=== PATIENT | male | born 1970 | race American Indian/Alaskan Native ===

== ENCOUNTER 2021-08-27 07:50 | Emergency (ER) | payer OTHER ==
--- NOTE | 2021-08-27 12:20 | Emergency Department Report ---
ED General Adult HPI - General Chief complaint: Chest Pain Stated complaint: CHEST PAIN Time Seen by Provider: 08/27/21 11:49 Source: patient, EMS Mode of arrival: Stretcher Limitations: No Limitations - History of Present Illness Initial comments: Patient is 51 years old male with no significant past medical history. Patient brought to the emergency room via EMS from home patient of substernal chest pain with no radiation started 3 days ago on and off. Patient stated that he also experienced some coughing and sweating last night. He is not vaccinated for Covid. Patient denied any nausea or vomiting. Severity scale (0 -10): 7 - Related Data Allergies Allergy/AdvReac Type Severity Reaction Status Date / Time aspirin Allergy Unknown Verified 08/27/21 07:54 diazepam [From Valium] Allergy Unknown Verified 08/27/21 07:54 ED Review of Systems ROS: Stated complaint: CHEST PAIN Other details as noted in HPI Comment: All other systems reviewed and negative Constitutional: denies: chills, fever Respiratory: cough. denies: shortness of breath, SOB with exertion, SOB at rest Cardiovascular: chest pain. denies: palpitations, dyspnea on exertion Gastrointestinal: denies: abdominal pain, nausea, vomiting Neurological: denies: headache, weakness, numbness, paresthesias, confusion ED Past Medical Hx - Past Medical History Previous Medical History?: Yes Hx Hypertension: Yes (NO MEDS) ED Physical Exam - General Limitations: No Limitations General appearance: alert, in no apparent distress - Head Head exam: Present: atraumatic, normocephalic, normal inspection - Eye Eye exam: Present: normal appearance, PERRL - ENT ENT exam: Present: normal exam, normal orophraynx, mucous membranes moist - Neck Neck exam: Present: normal inspection, full ROM. Absent: tenderness, meningismus - Respiratory Respiratory exam: Present: normal lung sounds bilaterally - Cardiovascular Cardiovascular Exam: Present: regular rate, normal rhythm, normal heart sounds - GI/Abdominal GI/Abdominal exam: Present: soft, normal bowel sounds. Absent: distended, tenderness, guarding, rebound, rigid, organomegaly, mass, bruit, pulsatile mass, hernia - Extremities Exam Extremities exam: Present: normal inspection, full ROM, normal capillary refill. Absent: tenderness, pedal edema, joint swelling, calf tenderness - Back Exam Back exam: Present: normal inspection, full ROM. Absent: CVA tenderness (R), CVA tenderness (L) - Neurological Exam Neurological exam: Present: alert, oriented X3, CN II-XII intact, normal gait, reflexes normal. Absent: motor sensory deficit - Psychiatric Psychiatric exam: Present: normal mood - Skin Skin exam: Present: warm, intact, normal color ED Course Vital Signs 08/27/21 08/27/21 07:51 13:52 Temperature 99.1 F 98.2 F Pulse Rate 78 109 H Respiratory 18 12 Rate Blood Pressure 135/88 143/93 [Right] O2 Sat by Pulse 97 96 Oximetry ED Medical Decision Making - Lab Data Result diagrams: 08/27/21 12:34 08/27/21 12:34 - Radiology Data Radiology results: report reviewed - Medical Decision Making Patient is 51 years old male with no significant past medical history. Patient brought to the emergency room via EMS from home patient of substernal chest pain with no radiation started 3 days ago on and off. Patient stated that he also experienced some coughing and sweating last night. He is not vaccinated for Cov id. Patient denied any nausea or vomiting. EKG is unremarkable. Labs reviewed and is negative including negative troponin x2. Chest x-ray is unremarkable. Patient is strongly advised to follow-up with his primary care physician for outpatient cardiac work-up and to return to the ER if he develop any new symptoms. Critical care attestation.: If time is entered above; I have spent that time in minutes in the direct care of this critically ill patient, excluding procedure time. ED Disposition Clinical Impression: Acute chest pain, Acute bronchitis Disposition: HOME / SELF CARE / HOMELESS Is pt being admited?: No Condition: Stable Instructions: Chest Pain (ED), Acute Bronchitis (ED), Nonspecific Chest Pain, Adult, Acute Bronchitis, Adult, [id number] Referrals: PRIMARY CARE,MD [Primary Care Provider] - 3-5 Days
--- NOTE | 2021-08-27 13:04 | XRay Report ---
CHEST 2 VIEWS INDICATION / CLINICAL INFORMATION: Chest Pain. COMPARISON: None available. FINDINGS: SUPPORT DEVICES: None. HEART / MEDIASTINUM: No significant abnormality. LUNGS / PLEURA: No significant pulmonary or pleural abnormality. No pneumothorax. ADDITIONAL FINDINGS: There is elevation of the left hemidiaphragm. IMPRESSION: 1. No acute findings. Signer Name: Peter Fraser MD Signed: 08/27/2021 1:00 PM Workstation Name: [id number]
[2021-08-27 13:16] LABS: Basophils % (Auto) 0.1 % (0.0-1.8); Hematocrit 47.3 % (35.5-45.6); Hemoglobin 14.7 gm/dl (11.8-15.2); Lymphocytes # (Auto) 1.2 K/mm3 (1.2-5.4); Lymphocytes % (Auto) 12.1 % (13.4-35.0); Mean Corpuscular HGB Conc 31 % (32-34); Mean Corpuscular Volume 83 fl (84-94); Monocytes # (Auto) 1.1 K/mm3 (0.0-0.8); Platelet Count 320 K/mm3 (140-440); Red Blood Count 5.72 M/mm3 (3.65-5.03); Red Cell Distribution Width 15.3 % (13.2-15.2)
[2021-08-27 13:34] LABS: BUN/Creatinine Ratio 10; Blood Urea Nitrogen 11 mg/dL (9-20); Calcium 9.1 mg/dL (8.4-10.2); Hemolysis Index 15
[2021-08-27 17:38] VITALS: BP 120/72
--- NOTE | 2021-08-28 11:46 | Electrocardiograph Report ---
[facility] Test Date: 2021-08-27 Test Time: 12:44:56 Pat Name: CHADD LOZANO Department: Room: Gender: M [employer]: POONAM : 1970 Requested By: GUERRERO TAI Order Number: [id number] Reading MD: Shravan Connelly Measurements Intervals [place] Rate: 99 P: 35 [place]: 169 QRS: 23 QRSD: 98 T: 82 QT: 335 QTc: 431 Interpretive Statements Sinus rhythm Probable left atrial enlargement No previous ECG available for comparison Electronically Signed On 08-28-2021 11:45:33 EST by Shravan Connelly
== END 2021-08-27 17:39 | disposition home or self-care (01) ==
LOC: ED 07:50
DX: R07.9 Chest pain, unspecified (principal); J20.9 Acute bronchitis, unspecified; I10 Essential (primary) hypertension; Z88.6 Allergy status to analgesic agent
CPT/HCPCS: 36415; 71046; 80048; 83690; 84484; 85025; 93005; 99284